=== PATIENT | male | born 1970 | race American Indian/Alaskan Native ===

== ENCOUNTER 2017-04-26 06:55 | Emergency (ER) | payer OTHER ==
--- NOTE | 2017-04-26 07:46 | Cat Scan Report ---
CT SCAN OF THE CERVICAL SPINE: HISTORY: Neck pain. TECHNIQUE: Contiguous 1.25 mm axial images of the cervical spine were obtained. Sagittal and coronal reformatted images. FINDINGS: There is normal alignment of the cervical spine. The body, pedicles and posterior ligaments appear normal. No evidence of fracture or subluxation is seen. Mild degenerative disc disease is noted at C5-6 and C6-7. The spinal canal appears normal. The prevertebral soft tissues appear normal. IMPRESSION: Unremarkable CT of the cervical spine. No acute process is noted.
--- NOTE | 2017-04-26 08:10 | Cat Scan Report ---
CT HEAD WITHOUT CONTRAST: HISTORY: Loss of consciousness. Serial contiguous axial images were obtained through the cranium. Intravenous contrast material was not administered. The ventricles are normal in size and appearance. There is no mass effect or midline shift. No areas of abnormally increased or decreased attenuation are seen. No mass lesion is seen. The mastoid air cells and visualized portions of the sinuses are normal. IMPRESSION: Cranial CT scan within normal limits.
--- NOTE | 2017-04-26 08:11 | XRay Report ---
LUMBOSACRAL SPINE, 3 VIEWS: History: Back pain Findings: The vertebral bodies, disk spaces and posterior elements are intact. No compression deformity or malalignment. The SI joints are symmetric and unremarkable. Impression: 1. No evidence for acute injury to the lumbar spine.
[2017-04-26] MEDS ORDERED: ZESTRIL PO ONE (09:16)
[2017-04-26] MEDS ORDERED: TORADOL IM ONE (09:16)
[2017-04-26] MEDS ORDERED: FLEXERIL PO ONE (09:16)
[2017-04-26] MEDS ORDERED: LOPRESSOR PO ONE (09:16)
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
[2017-04-26 09:38] VITALS: BP 162/101
== END 2017-04-26 10:05 | disposition home or self-care (01) ==
LOC: ED 06:55
DX: S46.912A Strain of unspecified muscle, fascia and tendon at shoulder and upper arm level, left arm, initial encounter (principal); S39.012A Strain of muscle, fascia and tendon of lower back, initial encounter; I10 Essential (primary) hypertension; V89.2XXA Person injured in unspecified motor-vehicle accident, traffic, initial encounter; Y93.89 Activity, other specified; Y92.89 Other specified places as the place of occurrence of the external cause; Y99.8 Other external cause status
CPT/HCPCS: 70450; 72100; 72125; 93005; 93010; 96372; 99284; J1885